=== PATIENT | male | born 1980 | race Caucasian/White ===

== ENCOUNTER 2018-02-23 17:03 | Emergency (ER) | payer OTHER ==
[2018-02-23] MEDS ORDERED: SILVER NITRATE 1 APPL TOP ONE (17:32)
[2018-02-23] MEDS ORDERED: LIDOCAINE 1% W/EPI 1:100,000 MDV 50 ML VIAL ONE (18:05)
--- NOTE | 2018-02-23 18:22 | ER ---
Nurse's Notes [facility] Name: Bennie Schafer Age: 37 yrs Sex: Male : 1980 Arrival Date: 02/23/2018 Time: 17:09 Bed 13 Private MD: Vanna Prabhakar Diagnosis: tongue laceration Presentation: 02/23 17:12 Presenting complaint: Patient states: I bit my tongue and it wont stop bleeding. la1 Transition of care: patient was not received from another setting of care. Onset of symptoms was February 23, 2018. Risk Assessment: Do you want to hurt yourself or someone else? Patient reports no desire to harm self or others. Initial Sepsis Screen: Does the patient meet any 2 criteria? No. Patient's initial sepsis screen is negative. Does the patient have a suspected source of infection? No. Patient's initial sepsis screen is negative. Care prior to arrival: None. 17:12 Method Of Arrival: Ambulatory la1 17:12 Acuity: MAGALY 5 la1 Historical: - Allergies: 17:12 No Known Allergies; la1 - PMHx: 17:13 Hypertension; la1 - Immunization history:: Adult Immunizations up to date. - Social history:: Smoking status: Patient/guardian denies using tobacco. - Ebola Screening: : No symptoms or risks identified at this time. Screenin:53 Abuse screen: Denies threats or abuse. Denies injuries from another. Nutritional ph screening: No deficits noted. Tuberculosis screening: No symptoms or risk factors identified. Fall Risk None identified. Assessment: 17:51 General: Appears in no apparent distress. comfortable, well groomed, Behavior is calm, ph cooperative, appropriate for age. Pain: Complains of pain in tongue. Neuro: Level of Consciousness is awake, alert, obeys commands, Oriented to person, place, time, situation. Cardiovascular: Capillary refill < 3 seconds in bilateral fingers Patient's skin is warm and dry. Respiratory: Airway is patent Respiratory effort is even, unlabored. EENT: laceration noted to L side of tongue, minimal bleeding noted at this time. Derm: Skin is intact, is healthy with good turgor, Skin is pink, warm \T\ dry. Musculoskeletal: Circulation, motion, and sensation intact. Range of motion: intact in all extremities. 18:33 Reassessment: Patient appears in no apparent distress at this time. Patient and/or ph family updated on plan of care and expected duration. Pain level reassessed. Patient is alert, oriented x 3, equal unlabored respirations, skin warm/dry/pink. No further bleeding noted after suture placement, pt d/c home. Vital Signs: 17:12 Pulse 92; Resp 18; Temp 97.3; Pulse Ox 98% on R/A; Weight 111.13 kg; Height 6 ft. 1 in. la1 (185.42 cm); 17:13 BP 151 / 94; la1 17:12 Body Mass Index 32.32 (111.13 kg, 185.42 cm) la1 ED Course: 17:09 Patient arrived in ED. mr 17:10 Va, Va is Private Physician. mr 17:12 Triage completed. la1 17:13 Arm band placed on right wrist. la1 17:14 Jeanne Santillan RN is Primary Nurse. ph 17:30 Soila Traylor FNP-C [facility]. snw 17:30 Lopez Moeller MD is Attending Physician. snw 17:53 Patient has correct armband on for positive identification. Bed in low position. Call ph light in reach. 18:10 Assist provider with laceration repair on tongue that was 2.5 cm. or less using ph sutures. Set up tray. Performed by Lopez Moeller MD Patient tolerated well. 18:36 Patient did not have IV access during this emergency room visit. ph Administered Medications: 17:45 Drug: Silver Nitrate Applicators 1 application Route: Topical; Site: wound; ph 18:30 Follow up: Response: No adverse reaction ph 18:10 Drug: Lidocaine-Epinephrine -1%: (1:100,000) 1 vials Volume: 20 ml; Route: Infiltration;ph 18:30 Follow up: Response: No adverse reaction ph Outcome: 18:22 Discharge ordered by . gs 18:34 Discharged to home ambulatory. ph 18:34 Condition: good 18:34 Discharge instructions given to patient, Instructed on discharge instructions, follow up and referral plans. Demonstrated understanding of instructions, follow-up care. 18:37 Patient left the ED. ph Signatures: Soila Traylor FNP-C [employer]IVE-Csnw Mimi Regan mr LilaismaelJoe RN RN la Santillan, Jeanne, RN Lopez Ho ph, MD MD gs Corrections: (The following items were deleted from the chart) 17:13 17:12 PMHx: None; la1 la1
--- NOTE | 2018-02-24 18:37 | EDPHYS ---
Physician Documentation [facility] Name: Bennie Schafer Age: 37 yrs Sex: Male : 1980 Arrival Date: 02/23/2018 Time: 17:09 Bed 13 Private MD: Vanna Dc ED Physician Lopez Moeller HPI: 02/23 18:52 This 37 yrs old Male presents to ER via Ambulatory with complaints of Tongue gs injury. 18:52 The patient presents with bit tongue. The problem is located in the tongue. Onset: The gs symptoms/episode began/occurred acutely, just prior to arrival. Duration: The symptoms are continuous. Associated signs and symptoms: Pertinent negatives: chills, fever. Severity of symptoms: At their worst the symptoms were moderate, in the emergency department the symptoms are unchanged. The patient has not experienced similar symptoms in the past. Historical: - Allergies: 17:12 No Known Allergies; la1 - PMHx: 17:13 Hypertension; la1 - Immunization history:: Adult Immunizations up to date. - Social history:: Smoking status: Patient/guardian denies using tobacco. - Ebola Screening: : No symptoms or risks identified at this time. ROS: 18:52 All other systems are negative. gs Exam: 18:52 Constitutional: The patient appears alert, awake. gs 18:52 ENT: Mouth: Tongue: has a laceration, approximately .5cm(s), seems perforated vein is bleeding. Vital Signs: 17:12 Pulse 92; Resp 18; Temp 97.3; Pulse Ox 98% on R/A; Weight 111.13 kg; Height 6 ft. 1 in. la1 (185.42 cm); 17:13 BP 151 / 94; la1 17:12 Body Mass Index 32.32 (111.13 kg, 185.42 cm) la1 Laceration: 18:52 Wound Repair of .5cm ( 0.2in ) subcutaneous laceration to tongue. Distal gs neuro/vascular/tendon intact. Anesthesia: Local anesthetic administered with 1 mls of 1% lidocaine. Wound prep: Simple cleansing. Skin closed with 1 4-0 Vicryl using simple sutures and sterile technique. MDM: 17:30 Patient medically screened. snw 18:52 Data reviewed: vital signs, nurses notes. ED course: attempted pressure agno3 with no gs avail had to suture x 1. Administered Medications: 17:45 Drug: Silver Nitrate Applicators 1 application Route: Topical; Site: wound; ph 18:30 Follow up: Response: No adverse reaction ph 18:10 Drug: Lidocaine-Epinephrine -1%: (1:100,000) 1 vials Volume: 20 ml; Route: Infiltration;ph 18:30 Follow up: Response: No adverse reaction ph Disposition: 02/23/18 18:22 Discharged to Home. Impression: tongue laceration. - Condition is Stable. - Discharge Instructions: Tongue Laceration, [id number]. - Medication Reconciliation Form, Thank You Letter, Antibiotic Education, Prescription Opioid Use form. - Follow up: Private Physician; When: 2 - 3 days; Reason: Re-evaluation by your physician. Signatures: Soila Traylor, ISAK-C PATIENT MONITOR-Csnw Joe Abdi RN RN la1 Jeanne Santillan RN RN ph Lopez Moeller MD MD Corrections: (The following items were deleted from the chart) 17:13 17:12 PMHx: None; charbel barger 18:37 18:22 02/23/2018 18:22 Discharged to Home. Impression: tongue laceration. Condition is ph Stable. Forms are Medication Reconciliation Form, Thank You Letter, Antibiotic Education, Prescription Opioid Use. Follow up: Private Physician; When: 2 - 3 days; Reason: Re-evaluation by your physician. gs
== END 2018-02-23 18:37 | disposition home or self-care (01) ==
LOC: ER 17:03
PROC: 0CQ73ZZ Repair Tongue, Percutaneous Approach (ICD-10-PCS; principal; 2018-02-23)
DX: S01.512A Laceration without foreign body of oral cavity, initial encounter (principal); X58.XXXA Exposure to other specified factors, initial encounter
CPT/HCPCS: 99283

== ENCOUNTER 2019-09-07 23:12 | Emergency (ER) | payer OTHER ==
[2019-09-07] MEDS ORDERED: NA CHLORIDE 0.9% 1,000 ML ONE ×2 (23:33→23:48)
[2019-09-07 23:49] LABS: Absolute Lymphocytes (CBC) 2.2 K/uL (0.7-4.9); Basophils % 0.7 % (0-1.3); Lymphocytes % 23.7 % (15.3-44.8); MPV 7.2 fL (7.6-11.3); RBC Red Blood Cell Count 6.16 M/uL (4.33-5.43)
[2019-09-07 23:50] LABS: Protime INR 0.95
[2019-09-08 00:57] LABS: ALT/SGPT 42 U/L (12-78); AST/SGOT 28 U/L (15-37); Alkaline Phosphatase 56 U/L (45-117); BUN Blood Urea Nitrogen 25 mg/dL (7-18); Bicarbonate 21 mmol/L (21-32); Bilirubin Direct 0.1 mg/dL (0-0.2); Bilirubin Total 0.3 mg/dL (0.2-1.0); Glucose Level 158 mg/dL (74-106); NT PRO-BNP 22 pg/mL (<125); Potassium 3.4 mmol/L (3.5-5.1); Protein, Total 5.4 g/dL (6.4-8.2); Sodium Level 140 mmol/L (136-145); Troponin (Emerg Dept Use Only) < 0.02 ng/mL (0.0-0.045)
--- NOTE | 2019-09-08 01:50 | ER ---
Nurse's Notes [facility] Name: Bennie Schafer Age: 38 yrs Sex: Male : 1980 Arrival Date: 09/07/2019 Time: 23:14 Bed 19 Private MD: Diagnosis: Medication overdose. Transient hypotension Presentation: 09/06 23:16 Chief complaint: Patient states: CP and SOB began after taking BP pill of higher dosage ll1 than usual. + N/V. Coronavirus screen: Proceed with normal triage. Patient denies a cough. Patient denies shortness of breath or difficulty breathing. Patient denies measured and/or subjective temperature greater than 100.4F prior to today's visit. Patient denies travel on a cruise ship or to a country the [facility] currently lists as an affected area. Patient denies contact with known and/or suspected case of COVID-19. Ebola Screen: Patient denies travel to an Ebola-affected area in the 21 days before illness onset. Initial Sepsis Screen: Does the patient meet any 2 criteria? HR > 90 bpm. No. Patient's initial sepsis screen is negative. Risk Assessment: Do you want to hurt yourself or someone else? Patient reports no desire to harm self or others. Onset of symptoms was September 07, 2019. 23:16 Method Of Arrival: Wheelchair ll1 23:38 Acuity: MAGALY 1 lp1 23:50 Initial Sepsis Screen: Does the patient have a suspected source of infection? No. mg2 Patient's initial sepsis screen is negative. Historical: - Allergies: 23:18 No Known Allergies; ll1 - PMHx: 23:18 Hypertension; ll1 - PSHx: 23:18 None; ll1 - Immunization history:: Flu vaccine status is unknown. - Social history:: Smoking status: Patient denies any tobacco usage or history of. Patient/guardian denies using alcohol, street drugs, tobacco products. Screenin:47 Abuse screen: Denies threats or abuse. Denies injuries from another. Nutritional mg2 screening: No deficits noted. Tuberculosis screening: No symptoms or risk factors identified. Fall Risk IV access (20 points). Assessment: 23:18 Pain: Complains of pain in chest. Neuro: Level of Consciousness is awake, alert, obeys mg2 commands, Oriented to person, place, time, situation. Cardiovascular: Capillary refill < 3 seconds Patient's skin is warm and dry. Respiratory: Airway is patent Respiratory effort is even, unlabored, Respiratory pattern is regular, symmetrical. GI: No signs and/or symptoms were reported involving the gastrointestinal system. : No signs and/or symptoms were reported regarding the genitourinary system. EENT: No signs and/or symptoms were reported regarding the EENT system. Derm: Skin is intact, is healthy with good turgor, Skin is pink, warm \T\ dry. normal. Musculoskeletal: Circulation, motion, and sensation intact. Capillary refill < 3 seconds. 23:20 Pain: Pain does not radiate. Pain began suddenly. mg2 23:49 General: Appears in no apparent distress. comfortable, Behavior is calm, cooperative. mg2 09/07 01:00 Reassessment: Patient appears in no apparent distress at this time. Patient and/or mg2 family updated on plan of care and expected duration. Pain level reassessed. Patient is alert, oriented x 3, equal unlabored respirations, skin warm/dry/pink. 02:14 Reassessment: Patient denies pain at this time. Patient states feeling better. Patient mg2 states symptoms have improved. Vital Signs: 09/06 23:16 Pulse 114; Resp 19; Temp 98.0; Pulse Ox 98% ; Pain 10/10; ll1 23:18 BP 68 / 57; ll1 23:36 BP 88 / 44; Pulse 102; Resp 20; Pulse Ox 100% ; mg2 23:48 BP 96 / 46; Pulse 86; Resp 18; Pulse Ox 100% on R/A; mg2 23:50 BP 102 / 50; Pulse 82; Resp 18; Pulse Ox 100% on R/A; mg2 02 01:49 BP 116 / 56; Pulse 82; Resp 18; Pulse Ox 100% on R/A; mg2 02:02 BP 117 / 56; Pulse 78; Resp 18; Pulse Ox 100% on R/A; mg2 ED Course: 09/06 23:14 Patient arrived in ED. cf2 23:15 Inserted saline lock: 18 gauge in right antecubital area, using aseptic technique. mg2 Blood collected. 23:17 Triage completed. ll1 23:18 Arm band placed on Patient placed in an exam room, on a stretcher. ll1 23:20 Inserted saline lock: 18 gauge in left forearm, using aseptic technique. Blood mg2 collected. 23:24 Sergio Cifuentes, RN is Primary Nurse. mg2 23:24 Jesus Pittman MD is Attending Physician. pkl 23:47 XRAY Chest (1 view) Sent. mg2 23:48 No provider procedures requiring assistance completed. mg2 23:50 Patient has correct armband on for positive identification. cook restaurant on. Pulse mg2 ox on. NIBP on. 06 00:24 XRAY Chest (1 view) In Process Unspecified. EDMS 02:02 IV discontinued, intact, bleeding controlled, No redness/swelling at site. Pressure mg2 dressing applied. 02:14 Patient maintains SpO2 saturation greater than 95% on room air. mg2 Administered Medications: 09/06 23:30 Drug: NS 0.9% 2000 ml Route: IV; Rate: 1000 ml; Site: right antecubital; mg2 09/07 02:01 Follow up: Response: No adverse reaction; IV Status: Completed infusion; IV Intake: mg2 2000ml 02:01 Drug: K-Dur 20 mEq Route: PO; mg2 02:01 Follow up: Response: No adverse reaction mg2 Intake: 02:01 IV: 2000ml; Total: 2000ml. mg2 Outcome: 01:50 Discharge ordered by . pkl 02:14 Discharged to home ambulatory. mg2 02:14 Condition: stable 02:14 Discharge instructions given to patient, Instructed on discharge instructions, follow up and referral plans. Demonstrated understanding of instructions, follow-up care. 02:14 Patient left the ED. mg2 Signatures: Dispatcher [employer] EDMS Jesus Pittman MD MD pkl Leyda Cuellar RN RN lp1 Sergio Cifuentes RN RN mg2 Luca Britton cf2 Raf Benson RN RN ll1 Corrections: (The following items were deleted from the chart) 09/06 23:38 23:16 Acuity: MAGALY 3 ll1 lp1
--- NOTE | 2019-09-08 01:51 | EDPHYS ---
Physician Documentation [facility] Name: Bennie Schafer Age: 38 yrs Sex: Male : 1980 Arrival Date: 09/07/2019 Time: 23:14 Bed 19 Private MD: ED Physician Jesus Pittman HPI: 09/06 23:55 This 38 yrs old Male presents to ER via Wheelchair with complaints of Chest pkl Pain, Shortness Of Breath. 23:55 The patient or guardian reports chest pain that is located primarily in the substernal pkl area. The pain does not radiate. Associated signs and symptoms: Pertinent positives: dizziness, lightheadedness, shortness of breath. The chest pain is described as thightness. Patient said he took a higher dose of his BP medication ( Minipress 5 mg ) prior to onset these symptoms. Historical: - Allergies: 23:18 No Known Allergies; ll1 - PMHx: 23:18 Hypertension; ll1 - PSHx: 23:18 None; ll1 - Immunization history:: Flu vaccine status is unknown. - Social history:: Smoking status: Patient denies any tobacco usage or history of. Patient/guardian denies using alcohol, street drugs, tobacco products. ROS: 23:55 Eyes: Negative for injury, pain, redness, and discharge, ENT: Negative for injury, pkl pain, and discharge, Neck: Negative for injury, pain, and swelling. 23:55 Cardiovascular: Positive for chest pain. 23:55 Respiratory: Positive for shortness of breath. 23:55 Abdomen/GI: Negative for abdominal pain, nausea, vomiting, and diarrhea. 23:55 Back: Negative for acute changes. 23:55 : Negative for urinary symptoms. 23:55 MS/extremity: Negative for acute changes. 23:55 Skin: Negative for diaphoresis, rash. 23:55 Neuro: Negative for altered mental status, loss of consciousness. Exam: 23:55 Head/Face: Normocephalic, atraumatic. Eyes: Pupils equal round and reactive to light, pkl extra-ocular motions intact. Lids and lashes normal. Conjunctiva and sclera are non-icteric and not injected. Cornea within normal limits. Periorbital areas with no swelling, redness, or edema. ENT: Nares patent. No nasal discharge, no septal abnormalities noted. Tympanic membranes are normal and external auditory canals are clear. Oropharynx with no redness, swelling, or masses, exudates, or evidence of obstruction, uvula midline. Mucous membranes moist. Neck: Trachea midline, no thyromegaly or masses palpated, and no cervical lymphadenopathy. Supple, full range of motion without nuchal rigidity, or vertebral point tenderness. No Meningismus. Chest/axilla: Normal chest wall appearance and motion. Nontender with no deformity. No lesions are appreciated. Cardiovascular: Regular rate and rhythm with a normal S1 and S2. No gallops, murmurs, or rubs. Normal PMI, no JVD. No pulse deficits. Respiratory: Lungs have equal breath sounds bilaterally, clear to auscultation and percussion. No rales, rhonchi or wheezes noted. No increased work of breathing, no retractions or nasal flaring. Abdomen/GI: Soft, non-tender, with normal bowel sounds. No distension or tympany. No guarding or rebound. No evidence of tenderness throughout. Back: No spinal tenderness. No costovertebral tenderness. Full range of motion. Skin: Warm, dry with normal turgor. Normal color with no rashes, no lesions, and no evidence of cellulitis. MS/ Extremity: Pulses equal, no cyanosis. Neurovascular intact. Full, normal range of motion. Neuro: Awake and alert, GCS 15, oriented to person, place, time, and situation. Cranial nerves II-XII grossly intact. Motor strength 5/5 in all extremities. Sensory grossly intact. Cerebellar exam normal. Normal gait. Vital Signs: 23:16 Pulse 114; Resp 19; Temp 98.0; Pulse Ox 98% ; Pain 10/10; ll1 23:18 BP 68 / 57; ll1 23:36 BP 88 / 44; Pulse 102; Resp 20; Pulse Ox 100% ; mg2 23:48 BP 96 / 46; Pulse 86; Resp 18; Pulse Ox 100% on R/A; mg2 23:50 BP 102 / 50; Pulse 82; Resp 18; Pulse Ox 100% on R/A; mg2 09/07 01:49 BP 116 / 56; Pulse 82; Resp 18; Pulse Ox 100% on R/A; mg2 02:02 BP 117 / 56; Pulse 78; Resp 18; Pulse Ox 100% on R/A; mg2 MDM: 09/06 23:24 Patient medically screened. pkl 09/07 01:47 Data reviewed: vital signs, nurses notes, lab test result(s), EKG, radiologic studies, pkl plain films. ED course: Patient feeling much better. Want to go home.. Advised to follow up with PCP tomorrow. Patient understood instruction. 09/06 23:26 Order name: Basic Metabolic Panel; Complete Time: :44 vc 09/06 23:26 Order name: CBC with Diff; Complete Time: 00:01 vc 09/06 23:26 Order name: LFT's; Complete Time: :44 vc 09/06 23:26 Order name: Magnesium; Complete Time: :44 vc 09/06 23:26 Order name: NT PRO-BNP; Complete Time: :44 vc 09/06 23:26 Order name: PT-INR; Complete Time: 00:01 vc 09/06 23:26 Order name: Troponin (emerg Dept Use Only); Complete Time: :44 vc 09/06 23:26 Order name: XRAY Chest (1 view) vc 09/06 23:26 Order name: EKG; Complete Time: 23:27 vc 09/06 23:26 Order name: Cardiac monitoring; Complete Time: 23:45 vc 09/06 23:26 Order name: EKG - Nurse/Tech; Complete Time: 23:47 vc 09/06 23:26 Order name: IV Saline Lock; Complete Time: 23:47 vc 09/06 23:26 Order name: Labs collected and sent; Complete Time: 23:47 vc 09/06 23:26 Order name: O2 Per Protocol; Complete Time: 23:47 vc 09/06 23:26 Order name: O2 Sat Monitoring; Complete Time: 23:47 vc Administered Medications: 09/06 23:30 Drug: NS 0.9% 2000 ml Route: IV; Rate: 1000 ml; Site: right antecubital; mg2 09/07 02:01 Follow up: Response: No adverse reaction; IV Status: Completed infusion; IV Intake: mg2 2000ml 02:01 Drug: K-Dur 20 mEq Route: PO; mg2 02:01 Follow up: Response: No adverse reaction mg2 Disposition: 09/08/19 01:50 Discharged to Home. Impression: Medication overdose. Transient hypotension. - Condition is Stable. - Medication Reconciliation Form, Thank You Letter, Antibiotic Education, Prescription Opioid Use form. - Follow up: Private Physician; When: Tomorrow; Reason: Re-evaluation by your physician. - Problem is new. - Symptoms have improved. Signatures: Dispatcher [employer] EDMS Jesus Pittman MD MD pkl Sergio Cifuentes, RN RN mg2 Eda Kumar RN RN vc Raf Benson RN RN ll1 Corrections: (The following items were deleted from the chart) 02:14 01:50 09/08/2019 01:50 Discharged to Home. Impression: Medication overdose. Transient mg2 hypotension. Condition is Stable. Forms are Medication Reconciliation Form, Thank You Letter, Antibiotic Education, Prescription Opioid Use. Follow up: Private Physician; When: Tomorrow; Reason: Re-evaluation by your physician. Problem is new. Symptoms have improved. pkl
[2019-09-08] MEDS ORDERED: POTASSIUM CL SA 10 MEQ TAB PO ONE (02:07)
[2019-09-08 02:23] VITALS: TEMP 98
[2019-09-08 02:25] VITALS: O2SAT 100
[2019-09-08 02:31] VITALS: BP 117/56
--- NOTE | 2019-09-08 08:30 | RAD REPORT ---
EXAM DESCRIPTION: RAD - Chest Single View - 09/08/2019 12:21 am CLINICAL HISTORY: CHEST PAIN Chest pain. COMPARISON: No comparisons FINDINGS: Portable technique limits examination quality. The lungs are underinflated but grossly clear. The heart is normal in size. No displaced fractures. IMPRESSION: No acute intrathoracic process suspected.
--- NOTE | 2019-09-08 19:25 | EKG ---
Test Date: 2019-09-07 Test Time: 23:34:15 Warehouse Clerk: MARISELA MEASUREMENT RESULTS: Intervals: Rate: 96 WY: 124 QRSD: 84 QT: 368 QTc: 464 [place]: P: 68 W[place]: 124 QRS: 56 T: -42 INTERPRETIVE STATEMENTS: Normal sinus rhythm Nonspecific T wave abnormality Prolonged QT Abnormal ECG No previous ECG available for comparison Electronically Signed On 09-08-19 19:24:00 CDT by Faizan Alfaro
== END 2019-09-08 02:14 | disposition home or self-care (01) ==
LOC: ER 23:12
DX: I95.89 Other hypotension (principal); T44.6X1A Poisoning by alpha-adrenoreceptor antagonists, accidental (unintentional), initial encounter; Y92.9 Unspecified place or not applicable
CPT/HCPCS: 96361; 93005; 85025; 80048; 36415; 83735; 85610; 80076; 84484; 83880; 71045; 96360; 99291; 99292; J7030 ×2

== ENCOUNTER 2022-10-04 12:54 | Emergency (ER) | payer OTHER ==
--- OUTSIDE RECORDS SUMMARY | 2022-10-04 12:57 | XMS REPORT | Continuity of Care Document ---
:1980 Author Organization [facility] t Address [address] [place] [id number] Care Team Providers Name Role Phone Luiz Yan MD Attending Clinician Payers Payer Name Policy Type Policy Number Effective Date Expiration Date S ource Problems Condition Condition Condition Status Onset Resolution Last Treating Co mments Source Name Details Category Date Date Treatment Clinician Date No known No known Disease Unive rs active active ity of problems problems [facility] Allergies, Adverse Reactions, Alerts Allergy Allergy Status Severity Reaction(s) Onset Inactive Treating Comm ents Source Name Type Date Date Clinician Tramadol Propensi Active Itching Unive rs ty to 4-30 ity of adverse 00:00: [place] reaction 00 [facility] [place] TRAMADOL DRUG Active ITCHING Univers INGREDI 4-30 ity of 00:00: [place] 00 [facility] NO KNOWN Drug Active Univers ALLERGIE Class ity of S [facility] Social History Social Habit Start Date Stop Date Quantity Comments Source Exposure to Not sure [facility] SARS-CoV-2 (event) Medica l Branch Sex Assigned At [birth year] [facility] 00:00:00 00:00:00 [facility] Smoking Status Start Date Stop Date Source Unknown if ever smoked [facility] Medications Ordered Filled Start Stop Current Ordering Indication Dosage Frequency Signature Comments Components Source Medication Medication Date Date Medication? Clinician (SIG) Name Name cefTRIAXone No 250mg 250 mg, U nivers (ROCEPHIN) 08-06 Intramuscu it y of injection 04:45: 03:45 lar, ONCE, [place] 250 mg 00 :00 1 dose, Medical Fri Branch 08/05/20 at 2345, LUCY
Re ason for Anti-Infec tive: Documented Infection< br>Documen martinez Infection Site: Pelvic
Duration of Therapy: Other (see Comments) HYDROcodone 2020- No 1{tbl} 1 tablet, Univers -acetaminop 08-06 Oral, ity of hen (NORCO) 04:00: 03:53 [place] 10[place]325 [place] :00 dose, Fri Medic al tablet 1 08/05/20 at [facility] h tablet 2300, Routine levoFLOXaci Yes [id number] 500mg Take 1 Univers n 4-30 tablet by ity of (LEVAQUIN) 00:00: mouth [place] 500 mg 00 every 24 Medical tablet (twenty-fo Branch ur) hours. acetaminoph Yes 4647 2{tbl} Take 2 Un andres en-codeine 4-30 tablets by ity of (TYLENOL-CO 00:00: mouth [place] DEINE #3) 00 every 6 Medical 300-30 mg (six) Branch tablet hours as needed for Pain (scale 7-10). Indication s: acute pain Vital Signs Vital Name Observation Time Observation Value Comments Source Systolic blood 2020-08-06 03:58:00 162 mm[Hg] [facility] Diastolic blood 2020-08-06 03:58:00 113 mm[Hg] [facility] Heart rate 2020-08-06 03:58:00 83 /min [facility] Respiratory rate 2020-08-06 03:58:00 18 /min [facility] Oxygen saturation in 2020-08-06 03:58:00 98 /min [facility] Arterial blood by [facility] Pulse oximetry [place] Body temperature 2020-08-06 01:37:00 36.83 Luisana [facility] Body height 2020-08-06 01:37:00 188 cm [facility] Body weight 2020-08-06 01:37:00 113.399 kg [facility] BMI 2020-08-06 01:37:00 32.10 kg/m2 [facility] Procedures Procedure Date / Time Performed Performing Clinician Sour e CT ABDOMEN PELVIS WO 2020-08-06 02:17:59 Luiz Yan [facility] URINALYSIS 2020-08-06 01:43:00 Luiz Yan [facility] NOTICE OF PRIVACY 2020-08-06 01:24:10 Doctor Unassigned, No [facility] Name Medical Branch CONSENT/REFUSAL FOR 2020-08-06 01:23:54 [facility] AND Name Medical Branch TREATMENT Encounters Start End Encounter Admission Attending Care Care Encounter Source Date/Time Date/Time Type Type Clinicians Facility Department ID 2020-08-05 2020-08-05 Emergency [facility] [id number] Univers 20:42:00 23:02:00 Luiz Ford [id number] [facility] [id number] [facility] [id number] Medi сергей 084 Branch 2020-08-05 2020-08-05 Emergency X [facility] ERT [id number] Univers 20:24:00 20:24:00 [facility] Results Test Description Test Time Test Comments Results Result Comments Source URINALYSIS 2020-08-06 02:05:18 Test Item Value Reference Range Interpretation Comme nts APPEARANCE (test code = Clear Clear 0752540543) COLOR (test code = 4465904632) Yellow Yellow PH (test code = 6124853367) 4.8-8.0 SP GRAVITY (test code = 1.003-1.030 1821982672) GLU U QUAL (test code = Normal Normal 3473261436) BLOOD (test code = 1419231540) Negative Negative KETONES (test code = 7736959908) Negative Negative PROTEIN (test code = 2887-8) Negative Negative UROBILIN (test code = 2.0 mg/dL Normal A 1680644007) BILIRUBIN (test code = Negative Negative 2839283931) NITRITE (test code = 8730173819) Negative Negative LEUK TERESA (test code = Negative Negative 9011657415) RBC/HPF (test code = 4670863439) See_Comment H [Automated message] The system which ge nerated this result transmit martinez reference range: 0 - 3 HP F. The reference range was not used to interpret th is result as normal/abnormal . WBC/HPF (test code = 7969061022) <1 See_Comment [Automated message] The system which ge nerated this result transmit martinez reference range: 0 - 5 HP F. The reference range was not used to interpret th is result as normal/abnormal . BACTERIA (test code = Negative Negative 5083958307) Lab Interpretation (test code = Abnormal 82527-2) [facility]
[2022-10-04] MEDS ORDERED: DIAZEPAM 5 MG TABLET ONE (13:19)
[2022-10-04] MEDS ORDERED: KETOROLAC 30 MG/ML INJ ONE (13:20)
[2022-10-04] MEDS ORDERED: MORPHINE 4 MG/ML SYR ONE (13:20)
[2022-10-04] MEDS ORDERED: dexAMETHasone 10 MG/ML VIAL ONE (13:20)
--- NOTE | 2022-10-04 13:46 | EDPHYS ---
Physician Documentation [facility] Name: Bennie Schafer Age: 41 yrs Sex: Male : 1980 Arrival Date: 10/04/2022 Time: 12:54 Bed 12 Private MD: Jan Montoya T ED Physician Andrade Hurtado HPI: 10/04 13:04 This 41 yrs old Male presents to ER via Ambulatory with complaints of Neck and Upper jmm Back Pain. 13:04 The patient or guardian complains of pain. Onset: The symptoms/episode began/occurred jmm 10 day(s) ago. Associated signs and symptoms: Pertinent negatives: fever. This is a 41/m with a history of htn that presents to the ED with complaints of neck pain beginning approx 10 days ago. Patient states he turned his head and developed acute pain which radiates down his left arm. Denies weakness. Is currently being taken care of by a chiropractor. Pain intensified yesterday. Prescribed medication is not helping his pain. . Historical: - Allergies: 13:04 No Known Allergies; nj1 - PMHx: 13:04 Hypertension; nj1 - Immunization history:: Client reports having NOT received the Covid vaccine. - Social history:: Smoking status: . ROS: 13:04 Constitutional: Negative for fever, chills, and weight loss, Cardiovascular: Negative jmm for chest pain, palpitations, and edema, Respiratory: Negative for shortness of breath, cough, wheezing, and pleuritic chest pain. 13:04 Neck: Positive for pain with movement. 13:04 All other systems are negative. Exam: 13:04 Constitutional: This is a well developed, well nourished patient who is awake, alert, jmm and in no acute distress. Head/Face: atraumatic. Eyes: EOMI, no conjunctival erythema appreciated ENT: Moist Mucus Membranes 13:04 Chest/axilla: Normal chest wall appearance and motion. Cardiovascular: Regular rate and rhythm. No edema appreciated Respiratory: Normal respirations, no respiratory distress appreciated Abdomen/GI: Non distended Back: Normal ROM Skin: General appearance color normal MS/ Extremity: Moves all extremities, no obvious deformities appreciated, no edema noted to the lower extremities Neuro: Awake and alert Psych: Behavior is normal, Mood is normal, Patient is cooperative and pleasant 13:04 Neck: ROM/movement: pain, that is moderate, with rotation to the left. Vital Signs: 12:59 BP 139 / 116; Pulse 79; Resp 16; Temp 97.7(TE); Pulse Ox 100% on R/A; Weight 113.4 kg; kc6 Height 6 ft. 2 in. ; Pain 10/10; 12:59 Body Mass Index 32.10 (113.40 kg, 187.96 cm) kc6 12:59 Pain Scale: Adult kc6 MDM: 13:04 Patient medically screened. [facility] 15:04 Differential diagnosis: cervical strain, Degenerative Disc Disease cervical jmm radiculopathy. Data reviewed: vital signs, nurses notes. I considered the following discharge prescriptions or medication management in the emergency department Medications were administered in the Emergency Department. See MAR. Counseling: I had a detailed discussion with the patient and/or guardian regarding: the historical points, exam findings, and any diagnostic results supporting the discharge/admit diagnosis, the need for outpatient follow up, to return to the emergency department if symptoms worsen or persist or if there are any questions or concerns that arise at home. Administered Medications: 13:21 Drug: Diazepam PO 5 mg Route: PO; kc6 13:56 Follow up: Response: No adverse reaction; Pain is decreased; RASS: Alert and Calm (0) 6 13:21 Drug: morphine IM 4 mg Route: IM; Site: right deltoid; kc6 13:56 Follow up: Response: No adverse reaction; Pain is decreased; RASS: Alert and Calm (0) 6 13:21 Drug: Ketorolac IM 30 mg Route: IM; Site: left deltoid; kc6 13:56 Follow up: Response: No adverse reaction; Pain is decreased 6 13:21 Drug: Dexamethasone IM 10 mg Route: IM; Site: left gluteus; kc6 13:56 Follow up: Response: No adverse reaction [facility] Disposition: 15:48 Co-signature as Attending Physician, Andrade Hurtado MD I reviewed the patient's care rn provided by the Advanced Practice Provider and agree with the diagnosis and treatment plan. Disposition Summary: 10/04/22 13:46 Discharge Ordered Location: Home [facility] Condition: Stable [facility] Diagnosis - Strain of muscle, fascia and tendon at neck level, initial encounter [facility] Followup: [facility] - With: Jan Montoya MD - When: 2 - 3 days - Reason: Recheck today's complaints, Continuance of care, Re-evaluation by your physician Discharge Instructions: - Discharge Summary Sheet [facility] - Cervical Strain and Sprain Rehab-SportsMed [facility] Forms: - Medication Reconciliation Form ciro - Thank You Letter tere - Antibiotic Education ciro - Prescription Opioid Use [facility] - [email or web address] [facility] Signatures: Slim Radford PA PA jmm Nieto, Roman, MD MD rn Campbell, Kaitlyn, RN RN kc6 Lois Leal RN RN nj1
--- NOTE | 2022-10-04 13:46 | ER ---
Nurse's Notes [facility] [place] Name: Bennie Schafer Age: 41 yrs Sex: Male : 1980 Arrival Date: 10/04/2022 Time: 12:54 Bed 12 Private MD: Jan Montoya T Diagnosis: Strain of muscle, fascia and tendon at neck level, initial encounter Presentation: 10/04 12:59 Chief complaint: Patient states: Neck pain radiating to left am since Sep 24. Pt nj1 states he went to [place], given rx for tylenol 3, ibuprofen and muscle relaxants. Pt in severe pain. Coronavirus screen: Vaccine status: Patient reports being unvaccinated. Ebola Screen: Patient denies travel to an Ebola-affected area in the 21 days before illness onset. Initial Sepsis Screen: Does the patient meet any 2 criteria? No. Patient's initial sepsis screen is negative. Does the patient have a suspected source of infection? No. Patient's initial sepsis screen is negative. Risk Assessment: Do you want to hurt yourself or someone else? Patient reports no desire to harm self or others. Onset of symptoms was September 24, 2022. 12:59 Method Of Arrival: Ambulatory [facility] 12:59 Acuity: MAGALY 3 nj1 Historical: - Allergies: 13:04 No Known Allergies; nj1 - PMHx: 13:04 Hypertension; nj1 - Immunization history:: Client reports having NOT received the Covid vaccine. - Social history:: Smoking status: . Screenin:21 [facility] ED Fall Risk Assessment (Adult) History of falling in the last 3 months, kc6 including since admission No falls in past 3 months (0 pts) Confusion or Disorientation No (0 pts) Intoxicated or Sedated No (0 pts) Impaired Gait No (0 pts) Mobility Assist Device Used No (0 pt) Altered Elimination No (0 pt) Score/Fall Risk Level 0 - 2 = Low Risk Oriented to surroundings, Maintained a safe environment, Educated pt \T\ family on fall prevention, incl call for assistance when getting out of bed, Assessed \T\ reinforced patient's understanding of fall precautions, Hourly rounding (assess needs \T\ fall precautionary measures) done. Abuse screen: Denies threats or abuse. Denies injuries from another. Nutritional screening: No deficits noted. Tuberculosis screening: No symptoms or risk factors identified. Assessment: 13:22 General: Appears in no apparent distress. uncomfortable, Behavior is calm, cooperative, kc6 appropriate for age. Pain: Complains of pain in neck, upper back. Neuro: Mondragon Agitation-Sedation Scale (RASS): 0 - Alert and Calm Level of Consciousness is awake, alert, obeys commands, Oriented to person, place, time, situation, Appropriate for age. Cardiovascular: Capillary refill < 3 seconds. Respiratory: Airway is patent Trachea midline Respiratory effort is even, unlabored, Respiratory pattern is regular, symmetrical. GI: No signs and/or symptoms were reported involving the gastrointestinal system. : No signs and/or symptoms were reported regarding the genitourinary system. EENT: No signs and/or symptoms were reported regarding the EENT system. Derm: No signs and/or symptoms reported regarding the dermatologic system. Skin is intact, Skin is pink, warm \T\ dry. Musculoskeletal: No signs and/or symptoms reported regarding the musculoskeletal system. Circulation, motion, and sensation intact. Capillary refill < 3 seconds, Range of motion: intact in all extremities. Vital Signs: 12:59 BP 139 / 116; Pulse 79; Resp 16; Temp 97.7(TE); Pulse Ox 100% on R/A; Weight 113.4 kg; kc6 Height 6 ft. 2 in. ; Pain 10/10; 12:59 Body Mass Index 32.10 (113.40 kg, 187.96 cm) kc6 12:59 Pain Scale: Adult kc6 ED Course: 12:57 Patient arrived in ED. im 12:57 Jan Montoya MD is Private Physician. im 12:59 [facility] 12:59 Andrade Hurtado MD is Attending Physician. jmm 13:04 Triage completed. nj1 13:05 Arm band placed on left wrist. nj1 13:09 Fawn Turner, DINA is Primary Nurse. kc6 13:22 Patient has correct armband on for positive identification. Bed in low position. Call kc6 light in reach. Side rails up X 1. 13:45 Jan Montoya MD is Referral Physician. jmm 13:56 No provider procedures requiring assistance completed. Patient did not have IV access kc6 during this emergency room visit. Administered Medications: 13:21 Drug: Diazepam PO 5 mg Route: PO; kc6 13:56 Follow up: Response: No adverse reaction; Pain is decreased; RASS: Alert and Calm (0) kc6 13:21 Drug: morphine IM 4 mg Route: IM; Site: right deltoid; kc6 13:56 Follow up: Response: No adverse reaction; Pain is decreased; RASS: Alert and Calm (0) kc6 13:21 Drug: Ketorolac IM 30 mg Route: IM; Site: left deltoid; kc6 13:56 Follow up: Response: No adverse reaction; Pain is decreased kc6 13:21 Drug: Dexamethasone IM 10 mg Route: IM; Site: left gluteus; kc6 13:56 Follow up: Response: No adverse reaction kc6 Medication: 13:56 VIS not applicable for this client. kc6 Outcome: 13:46 Discharge ordered by . tere 13:56 Discharged to home ambulatory, with significant other. kc6 13:56 Condition: improved 13:56 Discharge instructions given to patient, Instructed on discharge instructions, follow up and referral plans. Demonstrated understanding of instructions, follow-up care. 13:57 Patient left the ED. kc6 Signatures: Slim Radford PA PA jmm Campbell, Kaitlyn RN RN kc6 Lois Leal RN RN nj1 Melanie Tran Corrections: (The following items were deleted from the chart) 13:57 12:59 BP 139 / 116; Pulse 79bpm; Resp 76bpm; Pulse Ox 100% RA; Temp 97.7F Temporal; kc6 113.4 kg; Height 6 ft. 2 in.; BMI: 32.1; Pain 01/15, Adult; nj1
[2022-10-04 14:05] VITALS: BP 139/116; TEMP 97.7; O2SAT 100
== END 2022-10-04 13:57 | disposition home or self-care (01) ==
LOC: ER 12:54
DX: S16.1XXA Strain of muscle, fascia and tendon at neck level, initial encounter (principal); I10 Essential (primary) hypertension
CPT/HCPCS: 96372; 99284; J1100

== ENCOUNTER 2024-02-12 16:16 | Emergency (ER) | payer OTHER ==
[2024-02-12] MEDS ORDERED: ONDANSETRON 4 MG/2 ML VIAL ONE (16:40)
[2024-02-12] MEDS ORDERED: ASPIRIN 81 MG CHEWABLE TABLET ONE (16:41)
[2024-02-12] MEDS ORDERED: MORPHINE 4 MG/ML SYR ONE (16:41)
[2024-02-12 16:50] LABS: Absolute Basophils 0.1 K/uL (0-0.5); Absolute Eosinophils 0.2 K/uL (0-0.5); Absolute Lymphocytes (CBC) 1.5 K/uL (0.7-4.9); Absolute Monocytes 0.8 K/uL (0.1-1.3); Absolute Neutrophil 8.3 K/uL (1.8-8.0); Basophils % 0.7 % (0-1.3); Eosinophils % 1.5 % (0-4.4); Hematocrit 55.2 % (39.6-49.0); Hemoglobin 19.1 g/dL (13.6-17.9); Lymphocytes % 13.6 % (15.3-44.8); MCH 31.3 pg (27.0-35.0); MCHC 34.6 g/dL (32.0-36.0); MCV 90.5 fL (80-100); MPV 6.8 fL (7.6-11.3); Monocytes % 7.4 % (3.3-12.3); Neutrophils % 76.8 % (41.7-73.7); Platelets 223 thou/uL (152-406); Red Cell Distribution Width 14.9 % (12.1-15.2)
[2024-02-12 17:04] LABS: Anion Gap 9.1 mEq/L (5.0-15.0); Potassium 4.1 mEq/L (3.5-5.1); Troponin High Sensitivity 11.5 pg/mL (<58.9)
[2024-02-12] MEDS ORDERED: LORazepam 2 MG/ML VIAL ONE (17:34)
--- NOTE | 2024-02-12 17:58 | RAD REPORT ---
EXAMINATION: ONE VIEW CHEST XR CLINICAL INDICATION: Male, 43 years old.,CHEST PAIN TECHNIQUE: Frontal chest projection is submitted. Examination is limited by patient positioning and t echnique. COMPARISON: 07/14/2022 FINDINGS: The lungs are well inflated and clear. No pneumothorax or sizable effusion. The heart is normal in s ize. Mediastinal contours are unremarkable. IMPRESSION: No acute intrathoracic abnormalities.
[2024-02-12] MEDS ORDERED: NA CHLORIDE 0.9% 1,000 ML ONE (19:12)
--- NOTE | 2024-02-12 20:43 | ER ---
Nurse's Notes [facility] [place] Name: Bennie Schafer Age: 43 yrs Sex: Male : 1980 Arrival Date: 02/12/2024 Time: 16:16 Bed 7 Private MD: Diagnosis: Chest pain, unspecified Presentation: 02/11 16:24 Chief complaint: Patient states: Left sided chest pain that radiates down left arm cm10 onset 1hr [employer]OL [employer]. pt states that his left arm is numb. Coronavirus screen: Client denies travel out of the [place] in the last 14 days. Ebola Screen: Patient denies travel to an Ebola-affected area in the 21 days before illness onset. No symptoms or risks identified at this time. Initial Sepsis Screen: Does the patient meet any 2 criteria? HR > 90 bpm. Does the patient have a suspected source of infection? No. Patient's initial sepsis screen is negative. Risk Assessment: Do you want to hurt yourself or someone else? Patient reports no desire to harm self or others. Onset of symptoms was February 12, 2024. 16:24 Method Of Arrival: Wheelchair cm10 16:24 Acuity: MAGALY 2 cm10 Triage Assessment: 16:26 General: Appears in no apparent distress. uncomfortable, Behavior is restless. Neuro: cm10 No deficits noted. Level of Consciousness is awake, alert, obeys commands, Oriented to person, place, time, situation, Appropriate for age. Respiratory: No deficits noted. Airway is patent Respiratory effort is even, unlabored, Respiratory pattern is regular, symmetrical. Historical: - Allergies: 16:25 No Known Allergies; cm10 - PMHx: 16:25 Hypertension; cm10 - Immunization history:: Adult Immunizations up to date. - Infectious Disease History:: Denies. - Social history:: Smoking status: unknown. Screenin:07 [facility] ED Fall Risk Assessment (Adult) History of falling in the last 3 months, ph including since admission No falls in past 3 months (0 pts) Confusion or Disorientation No (0 pts) Intoxicated or Sedated No (0 pts) Impaired Gait No (0 pts) Mobility Assist Device Used No (0 pt) Altered Elimination No (0 pt) Score/Fall Risk Level 0 - 2 = Low Risk Oriented to surroundings, Maintained a safe environment, Hourly rounding (assess needs \T\ fall precautionary measures) done. Abuse screen: Denies threats or abuse. Denies injuries from another. Nutritional screening: No deficits noted. Tuberculosis screening: No symptoms or risk factors identified. Assessment: 16:30 General: Appears distressed, uncomfortable, Behavior is anxious, restless. Pain: ph Complains of pain in anterior aspect of left upper chest Pain radiates to left arm Pain began 1 hour ago. Neuro: Level of Consciousness is awake, alert, obeys commands, Oriented to person, place, time, situation. Cardiovascular: Reports chest pain, lightheadedness, shortness of breath. Cardiovascular: Rhythm is sinus tachycardia Chest pain quality is pressure, squeezing, is located in left anterior chest wall. Respiratory: Reports shortness of breath pain with respiration. GI: No signs and/or symptoms were reported involving the gastrointestinal system. Derm: Skin is pink, warm \T\ dry. Musculoskeletal: Circulation, motion, and sensation intact. Range of motion: intact in all extremities. 18:00 Reassessment: Patient appears in no apparent distress at this time. Patient and/or ph family updated on plan of care and expected duration. Pain level reassessed. Patient is alert, oriented x 3, equal unlabored respirations, skin warm/dry/pink. Pt appears less anxious and states that pain has improved after IV Ativan, VSS improved. Vital Signs: 16:24 BP 179 / 123; Pulse 109; Resp 20; Pulse Ox 99% on R/A; Weight 108.86 kg; Height 6 ft. 1 cm10 in. ; Pain 10/10; 17:10 BP 186 / 118; Pulse 108; Resp 26; Pulse Ox 100% on R/A; ph 17:52 BP 130 / 88; Pulse 99; Resp 20; Pulse Ox 96% on R/A; ph 20:25 BP 115 / 87; Pulse 98; Resp 18; Pulse Ox 99% ; bp 21:12 BP 118 / 96; Pulse 94; Resp 18; Pulse Ox 99% ; cp4 16:24 Body Mass Index 31.66 (108.86 kg, 185.42 cm) cm10 16:24 Pain Scale: Adult cm10 Vitals: 17:52 Cardiac Rhythm Assessment Sinus rhythm. ED Course: 16:16 Patient arrived in ED. mr 16:19 Shannon Conley FNP-C is PHCP. kb 16:19 Horton, Setul, MD is Attending Physician. kb 16:25 Triage completed. cm10 16:26 Arm band placed on Patient placed in an exam room, on a stretcher. EKG completed in cm10 triage. Results shown to MD. 16:26 EKG done, by ED staff, reviewed by Shannon JOVEL. cm10 16:30 Initial lab(s) drawn, by me, sent to lab. Inserted saline lock: 20 gauge in right ph forearm, using aseptic technique. Blood collected. Flushed with 10 mL NS. 16:35 Jeanne Santillan, RN is Primary Nurse. ph 17:08 Patient has correct armband on for positive identification. Bed in low position. Call ph light in reach. Side rails up X 1. Client placed on continuous cardiac and pulse oximetry monitoring. NIBP monitoring applied. site monitor on. Pulse ox on. 17:08 Patient maintains SpO2 saturation greater than 95% on room air. ph 17:16 XRAY Chest (1 view) In Process Unspecified. EDMS 18:33 No provider procedures requiring assistance completed. ph 20:20 Troponin High Sensitivity Sent. bp 21:13 intact, bleeding controlled, No redness/swelling at site. Pressure dressing applied. cp4 21:14 Provided Education on: chest pain. cp4 Administered Medications: 16:50 Drug: Aspirin PO Chewable Tablet 324 mg PO once; 81 mg tablets x 4 Route: PO; ph 16:50 Drug: morphine IVP or IV 4 mg IVP once over 4 mins Route: IVP; Infused Over: 4 mins; ph Site: right forearm; 16:50 Drug: Ondansetron IVP 4 mg IVP once; over 2 minutes Route: IVP; Site: right forearm; ph 17:38 Drug: Ativan IVP 1 mg IVP once Route: IVP; Site: right forearm; ph 19:16 Drug: NS 0.9% IV 1000 ml IV at 1000 ml once; to be given as a bolus over 60 minutes bp Route: IV; Rate: 1000 ml; Site: right antecubital; 21:15 Follow up: Response: No adverse reaction; IV Status: Completed infusion cp4 Medication: 17:07 VIS not applicable for this client. ph Outcome: 20:42 Discharge ordered by . kb 21:13 Discharged to home ambulatory, cp4 21:13 Condition: stable 21:13 Discharge instructions given to patient, Instructed on discharge instructions, follow up and referral plans. Demonstrated understanding of instructions, follow-up care, 21:14 Patient left the ED. cp4 Signatures: Dispatcher [employer] EDMS Shannon Conley, ISAK-C DROP FORGE HAND-Mimi Contreras, Reg Reg mr Jeanne Santillan, RN Luis Gill ph, RN RN bp Martinez, Clarissa, RN RN Shonna Villareal cp4
--- NOTE | 2024-02-12 20:43 | EDPHYS ---
Physician Documentation [facility] Name: Bennie Schafer Age: 43 yrs Sex: Male : 1980 Arrival Date: 02/12/2024 Time: 16:16 Bed 7 Private MD: ED Physician Sunil Horton HPI: 02/11 20:53 This 43 yrs old Male presents to ER via Wheelchair with complaints of Chest Pain. kb 20:53 Pt is a 43 year old male with a history of hypertension who presents for chest pain kb that started one hour ago. States he is also having numbness to left arm. Denies shortness of breath. States he has had similar episodes in the past. No aggravating or alleviating factors. . Historical: - Allergies: 16:25 No Known Allergies; cm10 - PMHx: 16:25 Hypertension; cm10 - Immunization history:: Adult Immunizations up to date. - Infectious Disease History:: Denies. - Social history:: Smoking status: unknown. ROS: 20:52 Constitutional: As per HPI kb Exam: 20:52 Head/Face: Normocephalic, atraumatic. ENT: Moist Mucous membranes Cardiovascular: kb Regular rate Respiratory: Respirations even and unlabored. No increased work of breathing. Talking in full sentences Abdomen/GI: Soft, non-tender. No distention Skin: Warm, dry with normal turgor. Normal color. MS/ Extremity: Pulses equal, no cyanosis. Neurovascular intact. Full, normal range of motion. Neuro: Awake and alert, GCS 15, oriented to person, place, time, and situation. 20:52 Constitutional: The patient appears alert, awake, anxious, Vital Signs: 16:24 BP 179 / 123; Pulse 109; Resp 20; Pulse Ox 99% on R/A; Weight 108.86 kg; Height 6 ft. 1 cm10 in. ; Pain 10/10; 17:10 BP 186 / 118; Pulse 108; Resp 26; Pulse Ox 100% on R/A; ph 17:52 BP 130 / 88; Pulse 99; Resp 20; Pulse Ox 96% on R/A; ph 20:25 BP 115 / 87; Pulse 98; Resp 18; Pulse Ox 99% ; bp 21:12 BP 118 / 96; Pulse 94; Resp 18; Pulse Ox 99% ; cp4 16:24 Body Mass Index 31.66 (108.86 kg, 185.42 cm) cm10 16:24 Pain Scale: Adult cm10 MDM: 16:19 Medical Screening Exam initiated kb 20:52 Differential diagnosis: acute mi, anxiety, arrhythmia. Data reviewed: vital signs, kb nurses notes. Consideration of Admission/Observation Escalation of care including admission/observation considered. admission considered but HEART score 1. Counseling: I had a detailed discussion with the patient and/or guardian regarding the historical points, exam findings, and any diagnostic results supporting the discharge/admit diagnosis, lab results, radiology results, the need for outpatient follow up, a family practitioner, to return to the emergency department if symptoms worsen or persist or if there are any questions or concerns that arise at home. ED course: chest pain resolved after ativan administration and has not returned. pt is feeling better. serial troponins normal. . 02/11 16:23 Order name: Basic Metabolic Panel; Complete Time: 17:06 kb 02/11 16:23 Order name: CBC with Diff; Complete Time: 17:14 kb 02/11 16:23 Order name: D-Dimer; Complete Time: 17:14 kb 02/11 16:23 Order name: NT PRO-BNP; Complete Time: 17:06 kb 02/11 16:23 Order name: Troponin HS; Complete Time: 17:06 kb 02/11 20:05 Order name: Troponin High Sensitivity; Complete Time: 20:42 kb 02/11 16:23 Order name: XRAY Chest (1 view); Complete Time: 18:06 kb 02/11 16:23 Order name: Cardiac monitoring; Complete Time: 16:36 kb 02/11 16:23 Order name: EKG - Nurse/Tech; Complete Time: 16:36 kb 02/11 16:23 Order name: IV Saline Lock; Complete Time: 16:36 kb 02/11 16:23 Order name: Labs collected and sent; Complete Time: 16:36 kb 02/11 16:23 Order name: O2 Per Protocol; Complete Time: 16:35 kb 02/11 16:23 Order name: O2 Sat Monitoring; Complete Time: 16:35 kb Administered Medications: 16:50 Drug: Aspirin PO Chewable Tablet 324 mg PO once; 81 mg tablets x 4 Route: PO; ph 16:50 Drug: morphine IVP or IV 4 mg IVP once over 4 mins Route: IVP; Infused Over: 4 mins; ph Site: right forearm; 16:50 Drug: Ondansetron IVP 4 mg IVP once; over 2 minutes Route: IVP; Site: right forearm; ph 17:38 Drug: Ativan IVP 1 mg IVP once Route: IVP; Site: right forearm; ph 19:16 Drug: NS 0.9% IV 1000 ml IV at 1000 ml once; to be given as a bolus over 60 minutes bp Route: IV; Rate: 1000 ml; Site: right antecubital; 21:15 Follow up: Response: No adverse reaction; IV Status: Completed infusion cp4 Disposition Summary: 02/12/24 20:42 Discharge Ordered Notes: Location: Home kb Condition: Stable kb Diagnosis - Chest pain, unspecified kb Followup: kb - With: Emergency Department - When: As needed - Reason: Worsening of condition Followup: kb - With: Private Physician - When: 2 - 3 days - Reason: Recheck today's complaints, Continuance of care, Re-evaluation by your physician Discharge Instructions: - Discharge Summary Sheet kb - Nonspecific Chest Pain, Adult, [id number] kb Forms: - Medication Reconciliation Form kb - Antibiotic Education kb - Prescription Opioid Use kb - Patient Portal Instructions kb - Leadership Thank You Letter kb Signatures: Dispatcher [employer] Shannon Barajas, MED NOALNDP-Jeanne Bell, RN RN Luis Porras, RN RN Valerie Nazario, RN RN cmShonna Villareal cp4 Corrections: (The following items were deleted from the chart) 16:23 16:23 Chest Single View+[email or web address] ordered. EDAL HAIDERMS
[2024-02-12 21:41] VITALS: O2SAT 99
[2024-02-12 21:42] VITALS: BP 118/96
== END 2024-02-12 21:14 | disposition home or self-care (01) ==
LOC: ER 16:16
DX: R07.9 Chest pain, unspecified (principal); I10 Essential (primary) hypertension
CPT/HCPCS: 85025; 80048; 36415; 85379; 84484 ×2; 83880; 71045; J2405; J7030